=== PATIENT | male | born 1955 | race African-American/Black ===

== ENCOUNTER 2024-10-21 19:11 | Emergency (ER) | payer BC, MEDICAID, MEDICARE ==
[~2024-10-21] VITALS: Ht 177.8 cm; Wt 84.0 kg
[2024-10-21 19:17] VITALS: O2SAT 99
[2024-10-22 00:20] LABS: CLARITY URINE TURBID (CLEAR); COLOR URINE YELLOW (YELLOW); GLUCOSE URINE NEGATIVE (NEGATIVE); KETONES URINE NEGATIVE (NEGATIVE); LEUKOCYTE ESTERASE URINE 3+ (NEGATIVE); NITRITE URINE NEGATIVE (NEGATIVE); OCCULT BLOOD URINE 3+ (NEGATIVE); PROTEIN URINE 3+ (NEGATIVE); SPECIFIC GRAVITY URINE 1.021 (1.005-1.030)
[2024-10-22] MEDS: KETOROLAC 30MG/ML VIAL IM STA (01:23)
[2024-10-22] MEDS: CEPHALEXIN 250MG CAPSULE PO NR (01:38)
[2024-10-22] MEDS: KETOROLAC 30MG/ML VIAL IM NR (01:38)
[2024-10-22 01:43] LABS: BASOPHILS % 0.6 % (0.0-2.0); EOSINOPHILS % 7.3 % (0.0-5.0); HEMATOCRIT. 37.2 % (42.0-52.0); HEMOGLOBIN. 12.7 g/dL (14.0-18.0); LYMPHOCYTES % 20.6 % (20.0-50.0); MEAN CORPUSCULAR HEMOGLOBIN 30.2 pg (28.0-32.0); MEAN CORPUSCULAR HGB CONC 34.1 g/dL (31.0-37.0); MEAN CORPUSCULAR VOLUME 88.8 fL (80.0-94.0); MONOCYTES % 11.9 % (2.0-8.0); NEUTROPHILS % 59.6 % (40.0-76.0); PLATELET 201 x1000/uL (130-400); RED BLOOD CELL COUNT 4.19 mill/uL (4.7-6.1)
[2024-10-22 01:50] LABS: CARBON DIOXIDE 29 mEq/L (21-32); CHLORIDE 107 mEq/L (98-107); POTASSIUM 4.4 mEq/L (3.5-5.1); SODIUM 142 mEq/L (136-145)
[2024-10-22 01:51] LABS: CALCIUM 8.8 mg/dL (8.7-10.4)
[2024-10-22 01:55] LABS: CREATININE 1.6 mg/dL (0.6-1.3)
[2024-10-22 01:56] LABS: GLUCOSE 139 mg/dL (70-105); UREA NITROGEN BLOOD 21 mg/dL (9-23)
[2024-10-22 01:57] LABS: ALANINE AMINOTRANSFERASE 16 IU/L (10-49); ALBUMIN 3.7 g/dL (3.2-4.8); ASPARTATE AMINOTRANSFERASE 16 IU/L (<34)
[2024-10-22 01:58] LABS: BILIRUBIN DIRECT 0.2 mg/dL (<=3.0); BILIRUBIN TOTAL 0.5 mg/dL (0.1-1.0); PROTEIN TOTAL 6.9 g/dL (6.0-8.3)
[2024-10-22] MEDS: SODIUM CHLORIDE 0.9% 1,000 ML IV ONE (01:58)
[2024-10-22 04:19] LABS: WBC URINE TNTC /hpf (0-2)
[2024-10-22 04:23] LABS: RBC URINE 50-100 /hpf (0-2); SQUAMOUS EPITHELIAL CELL URINE NONE SEEN /lpf (RARE/1+)
[2024-10-22 04:25] LABS: BACTERIA URINE 2+
[2024-10-22] MEDS ORDERED: IBUP-2029 MT (05:23)
[2024-10-22] MEDS ORDERED: CEPH500T MT (05:23)
[2024-10-22 06:11] VITALS: BP 138/78; PULSE 83; RESP 18; TEMP 36.9; O2SAT 96
== END 2024-10-22 06:13 | disposition home or self-care (01) ==
LOC: ER 19:11
DX: R10.9 Unspecified abdominal pain (principal); R35.0 Frequency of micturition; R39.15 Urgency of urination; I10 Essential (primary) hypertension; J44.9 Chronic obstructive pulmonary disease, unspecified; Z87.442 Personal history of urinary calculi
CPT/HCPCS: 99285; 81003; 87086; 87186; 87077; 36415; 74176; 80076; 80048; 83690; 85025; 96372; J1885; J7030; A4606

== ENCOUNTER 2024-11-26 16:45 | Emergency (ER) | payer MEDICARE, MEDICAID ==
[~2024-11-26] VITALS: Ht 177.8 cm; Wt 75.0 kg
[~2024-11-26 16:45] MED LIST: CEPH500T MT; IBUP-2029 MT
[2024-11-26 16:47] VITALS: BP 189/140; TEMP 36.9
[2024-11-26 17:10] VITALS: O2SAT 98
[2024-11-26 17:39] VITALS: PULSE 101; RESP 22; O2SAT 97
[2024-11-26] MEDS: ALBUTEROL (0.083%) 2.5MG/3ML NEB HHN NR (17:39)
[2024-11-26] MEDS: IPRATROPIUM BROMIDE (0.02%) 0.5MG/2.5ML NEB HHN NR (17:39)
[2024-11-26 18:26] LABS: BASOPHILS % 0.6 % (0.0-2.0); EOSINOPHILS % 1.1 % (0.0-5.0); HEMATOCRIT. 37.7 % (42.0-52.0); HEMOGLOBIN. 12.2 g/dL (14.0-18.0); LYMPHOCYTES % 20.7 % (20.0-50.0); MEAN CORPUSCULAR HEMOGLOBIN 28.9 pg (28.0-32.0); MEAN CORPUSCULAR HGB CONC 32.3 g/dL (31.0-37.0); MEAN CORPUSCULAR VOLUME 89.5 fL (80.0-94.0); MEAN PLATELET VOLUME 10.1 fl (7.4-10.4); MONOCYTES % 11.6 % (2.0-8.0); PLATELET 191 x1000/uL (130-400); RED BLOOD CELL COUNT 4.22 mill/uL (4.7-6.1); RED CELL DISTRIBUTION WIDTH 16.8 % (11.6-14.6)
[2024-11-26 18:45] LABS: CHLORIDE 107 mEq/L (98-107); POTASSIUM 4.2 mEq/L (3.5-5.1); SODIUM 141 mEq/L (136-145)
[2024-11-26 18:46] LABS: CARBON DIOXIDE 28 mEq/L (21-32)
[2024-11-26 18:51] LABS: CREATININE 1.5 mg/dL (0.6-1.3); GLUCOSE 90 mg/dL (70-105); UREA NITROGEN BLOOD 24 mg/dL (9-23)
[2024-11-26] MEDS: FUROSEMIDE 40MG/4ML VIAL IVP NR (19:30)
[2024-11-26 19:39] LABS: TROPONIN I HIGH SENSITIVITY 96 ng/L (3.0-53)
[2024-11-26] MEDS: ASPIRIN 325MG EC TABLET PO NR (21:02)
== END 2024-11-26 22:26 | disposition left against medical advice (07) ==
LOC: ER 16:45 → EDBEDREQ 17:17 → ER 22:26
DX: J44.9 Chronic obstructive pulmonary disease, unspecified (principal); R00.0 Tachycardia, unspecified; F12.90 Cannabis use, unspecified, uncomplicated; I10 Essential (primary) hypertension; F17.210 Nicotine dependence, cigarettes, uncomplicated; Z79.899 Other long term (current) drug therapy
CPT/HCPCS: 99291; 96374; 80048; 83880; 85025; 84484; 36415; 71045; 94640; 93005; J1940; 94070

== ENCOUNTER 2025-05-29 16:52 | Inpatient (IN) | payer MEDICARE, MEDICAID ==
[~2025-05-29] VITALS: Ht 180.3 cm; Wt 80.3 kg
[~2025-05-29 16:52] MED LIST changes: +IBUP-1455 MT; -IBUP-2029 MT
[2025-05-29 17:00] VITALS: O2SAT 99
[2025-05-29] MEDS ORDERED: FUROSEMIDE 40MG/4ML VIAL IV ONE (17:15)
[2025-05-29 17:37] LABS: BASOPHILS % 1.0 % (0.0-2.0); EOSINOPHILS % 2.5 % (0.0-5.0); HEMATOCRIT. 35.6 % (42.0-52.0); HEMOGLOBIN. 11.3 g/dL (14.0-18.0); LYMPHOCYTES % 21.0 % (20.0-50.0); MEAN PLATELET VOLUME 9.5 fl (7.4-10.4); MONOCYTES % 11.6 % (2.0-8.0); NEUTROPHILS % 63.9 % (40.0-76.0); PLATELET 141 x1000/uL (130-400); RED BLOOD CELL COUNT 3.92 mill/uL (4.7-6.1); RED CELL DISTRIBUTION WIDTH 18.4 % (11.6-14.6)
[2025-05-29 17:48] LABS: INR 1.2
[2025-05-29 17:50] LABS: CREATININE 1.7 mg/dL (0.6-1.3); UREA NITROGEN BLOOD 18 mg/dL (9-23)
[2025-05-29 17:52] LABS: ASPARTATE AMINOTRANSFERASE 17 IU/L (<34); BILIRUBIN DIRECT 0.3 mg/dL (<=3.0); BILIRUBIN TOTAL 0.6 mg/dL (0.1-1.0)
[2025-05-29 17:53] LABS: PROTEIN TOTAL 7.3 g/dL (6.0-8.3); TROPONIN I HIGH SENSITIVITY 76 ng/L (3.0-53)
[2025-05-29] MEDS ORDERED: CLOPIDOGREL 75MG TABLET PO ONE (18:00)
[2025-05-29] MEDS ORDERED: ASPIRIN 325MG EC TABLET PO ONE (18:00)
[2025-05-29] MEDS: CLOPIDOGREL 75MG TABLET PO NR (20:31)
[2025-05-29] MEDS: FUROSEMIDE 40MG/4ML VIAL IV NR (20:31)
[2025-05-29] MEDS: ASPIRIN 325MG EC TABLET PO NR (20:32)
[2025-05-29 21:16] VITALS: BP 187/149; O2SAT 95
[2025-05-29 21:18] VITALS: BP 169/115; PULSE 81; RESP 18; O2SAT 98
[2025-05-29 23:48] VITALS: BP 152/98; PULSE 79; RESP 20; TEMP 36.696
[2025-05-30] VITALS: BP 152/98; PULSE 84; RESP 20; TEMP 36.7; O2SAT 100
[2025-05-30 04:59] VITALS: BP 155/96; PULSE 75; RESP 20; TEMP 36.4; O2SAT 100
[2025-05-30] MEDS ORDERED: HYDROCODONE/ACETAMINOPHEN 10/325MG TABLET PO PRN (06:00)
[2025-05-30] MEDS ORDERED: ALPRAZOLAM 0.5 MG TABLET PO PRN (06:15)
[2025-05-30 08:00] VITALS: BP 170/50; PULSE 91; RESP 14; TEMP 36.4; O2SAT 92
[2025-05-30] MEDS: ASPIRIN 81MG TABLET PO SCH (08:19)
[2025-05-30] MEDS: FUROSEMIDE 40MG TABLET PO SCH (08:20)
[2025-05-30 08:34] LABS: HEPATITIS C AB REACTIVE (Pos) (Negative)
[2025-05-30] MEDS: FUROSEMIDE 40MG/4ML VIAL IVP SCH (10:57)
[2025-05-30] MEDS: HYDRALAZINE HCL 50MG TABLET PO NR (10:59)
[2025-05-30] MEDS: AMLODIPINE 10MG TABLET PO SCH (11:37)
[2025-05-30 12:00] VITALS: BP 151/114; PULSE 77; RESP 14; TEMP 36.7; O2SAT 99
[2025-05-30] MEDS: GABAPENTIN 300MG CAPSULE PO SCH (13:37)
[2025-05-30] MEDS: ENOXAPARIN 40MG/0.4ML SYR SUBCUT SCH (13:37)
[2025-05-30] MEDS: HYDRALAZINE HCL 50MG TABLET PO SCH (13:37)
[2025-05-30 15:00] LABS: *AMPHETAMINES SCREEN URINE NEGATIVE (NEGATIVE); *BARBITURATES SCREEN URINE NEGATIVE (NEGATIVE); *BENZODIAZEPINES SCREEN URINE NEGATIVE (NEGATIVE); *COCAINE SCREEN URINE PRESUMPTIVE POSITIVE (NEGATIVE); CANNABINOID URINE SCREEN NEGATIVE (NEGATIVE); ECSTASY MDMA SCREEN URINE NEGATIVE (NEGATIVE); METHADONE URINE SCREEN NEGATIVE (NEGATIVE); OPIATES URINE SCREEN NEGATIVE (NEGATIVE); PHENCYCLIDINE URINE SCREEN PRESUMTIVE POSITIVE (NEGATIVE)
[2025-05-30 15:44] LABS: BASOPHILS % 0.8 % (0.0-2.0); EOSINOPHILS % 2.1 % (0.0-5.0); HEMATOCRIT. 36.1 % (42.0-52.0); HEMOGLOBIN. 11.8 g/dL (14.0-18.0); LYMPHOCYTES % 17.6 % (20.0-50.0); MEAN PLATELET VOLUME 9.3 fl (7.4-10.4); MONOCYTES % 9.9 % (2.0-8.0); NEUTROPHILS % 69.6 % (40.0-76.0); PLATELET 172 x1000/uL (130-400); RED BLOOD CELL COUNT 4.14 mill/uL (4.7-6.1); RED CELL DISTRIBUTION WIDTH 18.3 % (11.6-14.6)
[2025-05-30 15:54] LABS: CREATININE 1.8 mg/dL (0.6-1.3); UREA NITROGEN BLOOD 19.0 mg/dL (9-23)
[2025-05-30 16:00] VITALS: BP 155/94; PULSE 88; RESP 17; TEMP 36.4; O2SAT 96
[2025-05-30 16:06] LABS: TROPONIN I HIGH SENSITIVITY 72.0 ng/L (3.0-53)
[2025-05-30 20:00] VITALS: BP 156/103; PULSE 97; RESP 14; TEMP 36.9; O2SAT 99
[2025-05-30] MEDS: ALPRAZOLAM 0.5 MG TABLET PO SCH (21:50)
[2025-05-31] VITALS: BP 133/84; PULSE 95; RESP 20; TEMP 37; O2SAT 90
[2025-05-31 04:00] VITALS: BP 126/106; PULSE 93; RESP 14; TEMP 36.9; O2SAT 90
[2025-05-31 08:00] VITALS: BP 121/52; PULSE 95; RESP 15; TEMP 36.8; O2SAT 95
[2025-05-31] MEDS ORDERED: PREDNISONE 20MG TABLET PO SCH (10:00)
[2025-05-31 12:00] VITALS: BP 121/52; PULSE 96; RESP 15; TEMP 36.7; O2SAT 95
[2025-05-31 12:00] LABS: BG BASE EXCESS 5.8 mmol/L (-2.0-3.0); BG CARBOXYHEMOGLOBIN 2.2 % (0.5-1.5); BG DEOXYHEMOGLOBIN 5.1 % (0.0-5.0); BG FRACTION INSPIRED OXYGEN 21; BG HCO3 ACT 30.8 mmol/L (21.0-28.0); BG METHEMOGLOBIN 0.1 % (0.5-1.5); BG OXYGEN SATURATION 94.8 % (94.0-98.0); BG OXYHEMOGLOBIN 92.6 % (94.0-98.0); BG PCO2 45.6 mmHg (35.0-48.0); BG PH 7.447 (7.350-7.450); BG PO2 74.4 mmHg (83.0-108.0); BG SAMPLE SITE LEFT BRACHIAL; BG TOTAL HEMOGLOBIN 14.0 g/dL (13.5-17.5); BG VENT MODE ROOM AIR
[2025-05-31 17:03] VITALS: BP 112/68; PULSE 78; RESP 20; TEMP 98
== END 2025-05-31 17:54 | disposition home or self-care (01) | DRG 280 ==
LOC: ER 16:52 → EDBEDREQ 18:26 → EDBEDREQTM 18:26 → ENRESERV 20:31 → 3WST 21:14
PROVIDERS: ADMIT Internal Medicine; ATTEND Internal Medicine
DX: I13.0 Hypertensive heart and chronic kidney disease with heart failure and stage 1 through stage 4 chronic kidney disease, or unspecified chronic kidney disease (principal); I50.23 Acute on chronic systolic (congestive) heart failure; I21.4 Non-ST elevation (NSTEMI) myocardial infarction; J96.00 Acute respiratory failure, unspecified whether with hypoxia or hypercapnia; N17.9 Acute kidney failure, unspecified; D64.9 Anemia, unspecified; D72.819 Decreased white blood cell count, unspecified; N18.9 Chronic kidney disease, unspecified; I48.91 Unspecified atrial fibrillation; F16.90 Hallucinogen use, unspecified, uncomplicated; F17.210 Nicotine dependence, cigarettes, uncomplicated; F19.10 Other psychoactive substance abuse, uncomplicated; M10.9 Gout, unspecified; Z87.442 Personal history of urinary calculi
CPT/HCPCS: 36415; 36600; 71045; 73080; 80048; 80076; 80305; 82375; 82805; 83735; 83880; 84484; 84550; 85025; 86705; 87340; 93005; 93306; 96374; 99291; A4606; J1650; J1938

== ENCOUNTER 2025-06-13 06:21 | Inpatient (IN) | payer MEDICARE, MEDICAID ==
[~2025-06-13] VITALS: Ht 180.3 cm; Wt 82.1 kg
[2025-06-13 06:28] VITALS: O2SAT 95
[2025-06-13] MEDS ORDERED: MORPHINE SULFATE 4 MG/ML INJ (FOR IV/IM USE) IV ONE (06:45)
[2025-06-13 07:30] LABS: HEMATOCRIT. 33.8 % (42.0-52.0); HEMOGLOBIN. 11.2 g/dL (14.0-18.0); MEAN PLATELET VOLUME 9.5 fl (7.4-10.4); PLATELET 141 x1000/uL (130-400); RED BLOOD CELL COUNT 3.91 mill/uL (4.7-6.1); RED CELL DISTRIBUTION WIDTH 18.2 % (11.6-14.6)
[2025-06-13] MEDS: FUROSEMIDE 40MG/4ML VIAL IVP ONE (07:45)
[2025-06-13] MEDS: ENALAPRIL 2.5MG/2ML VIAL 2ML IV ONE (07:45)
[2025-06-13 07:47] LABS: CREATININE 1.8 mg/dL (0.6-1.3)
[2025-06-13 07:48] LABS: UREA NITROGEN BLOOD 27 mg/dL (9-23)
[2025-06-13 08:15] LABS: TROPONIN I HIGH SENSITIVITY 75 ng/L (3.0-53)
[2025-06-13] MEDS: ENALAPRIL 1.25MG/ML VIAL 1ML IV SCH (08:15)
[2025-06-13] MEDS: ACETAMINOPHEN 1000MG/100ML 100 ML IV ONE (08:30)
[2025-06-13] MEDS: NIFEDIPINE XL 60MG TAB PO NR (10:15)
[2025-06-13] MEDS: HYDRALAZINE 20MG/ML VIAL IV SCH (11:27)
[2025-06-13 12:21] LABS: BAND% 3.0 % (1.0-6.0); EOSINOPHILS % MANUAL 3.0 % (0.0-5.0); LYMPHOCYTES % MANUAL 18.0 % (20.0-50.0); MONOCYTES % MANUAL 14.0 % (2.0-8.0); NEUTROPHILS % MANUAL 62.0 % (45.0-75.0)
[2025-06-13 12:22] LABS: PLATELET ESTIMATE NORMAL
[2025-06-13] MEDS: FUROSEMIDE 100MG/10ML VIAL IVP SCH (13:15)
[2025-06-13] MEDS ORDERED: ACETAMINOPHEN 325MG TABLET PO PRN (13:15)
[2025-06-13] MEDS ORDERED: ONDANSETRON HCL 4MG/2ML INJ IV PRN (13:15)
[2025-06-13] MEDS ORDERED: ALPR2TAB2 MT (13:40)
[2025-06-13] MEDS ORDERED: GABA-290 MT (13:40)
[2025-06-13] MEDS ORDERED: LISI2.5T47 MT (13:40)
[2025-06-13] MEDS ORDERED: OXYC1TAB12 MT (13:40)
[2025-06-13] MEDS ORDERED: FURO-151 MT (13:40)
[2025-06-13 13:47] VITALS: BP 94/59; PULSE 73; RESP 20; TEMP 36.4736
[2025-06-13] MEDS: HYDRALAZINE HCL 50MG TABLET PO SCH (14:00)
[2025-06-13 16:00] VITALS: BP 111/66; PULSE 71; RESP 19; TEMP 36.5; O2SAT 96
[2025-06-13 20:00] VITALS: BP 106/61; PULSE 76; RESP 18; TEMP 36.4; O2SAT 96
[2025-06-13] MEDS: CARVEDILOL 12.5MG TABLET PO SCH (20:37)
[2025-06-14] VITALS: BP 139/79; PULSE 77; RESP 18; TEMP 36.4; O2SAT 98
[2025-06-14 01:19] LABS: *AMPHETAMINES SCREEN URINE NEGATIVE (NEGATIVE); *BARBITURATES SCREEN URINE NEGATIVE (NEGATIVE); *BENZODIAZEPINES SCREEN URINE NEGATIVE (NEGATIVE); *COCAINE SCREEN URINE PRESUMPTIVE POSITIVE (NEGATIVE); CANNABINOID URINE SCREEN NEGATIVE (NEGATIVE); METHADONE URINE SCREEN NEGATIVE (NEGATIVE); OPIATES URINE SCREEN NEGATIVE (NEGATIVE); PHENCYCLIDINE URINE SCREEN PRESUMTIVE POSITIVE (NEGATIVE)
[2025-06-14 01:20] LABS: ECSTASY MDMA SCREEN URINE NEGATIVE (NEGATIVE)
[2025-06-14 04:00] VITALS: BP 142/75; PULSE 78; RESP 17; TEMP 36.4; O2SAT 76
[2025-06-14 08:00] VITALS: BP 145/46; PULSE 67; RESP 19; TEMP 36.4; O2SAT 98
[2025-06-14] MEDS: ENOXAPARIN 40MG/0.4ML SYR SUBCUT SCH (09:00)
[2025-06-14] MEDS ORDERED: SPIR25TA6 MT (11:22)
[2025-06-14] MEDS ORDERED: FURO80TA87 MT (11:22)
[2025-06-14] MEDS ORDERED: LOSA100T33 MT (11:22)
[2025-06-14] MEDS ORDERED: COR12 PO (11:22)
[2025-06-14 12:00] VITALS: BP 125/66; PULSE 60; RESP 18; TEMP 36.5; O2SAT 97
[2025-06-14] MEDS: MAGNESIUM 2 G PREMIX 50 ML IV SCH (15:00)
[2025-06-14 17:07] VITALS: BP 136/74; PULSE 20; RESP 20; TEMP 97.2
== END 2025-06-14 17:45 | disposition home or self-care (01) | DRG 280 ==
LOC: ER 06:21 → 8WST 08:40 → EDBEDREQ 08:48 → EDBEDREQTM 08:48 → ENRESERV 11:35
PROVIDERS: ADMIT Internal Medicine; ATTEND Internal Medicine
DX: I13.0 Hypertensive heart and chronic kidney disease with heart failure and stage 1 through stage 4 chronic kidney disease, or unspecified chronic kidney disease (principal); I50.23 Acute on chronic systolic (congestive) heart failure; I21.4 Non-ST elevation (NSTEMI) myocardial infarction; E66.9 Obesity, unspecified; N18.9 Chronic kidney disease, unspecified; D64.9 Anemia, unspecified; Z68.25 Body mass index [BMI] 25.0-25.9, adult; F19.10 Other psychoactive substance abuse, uncomplicated; D72.819 Decreased white blood cell count, unspecified; F17.210 Nicotine dependence, cigarettes, uncomplicated; F14.90 Cocaine use, unspecified, uncomplicated
CPT/HCPCS: 36415; 71045; 80048; 80305; 83880; 84484; 85025; 93005; 96374; 96375; 97116; 97162; 99285; J0360; J1650; J1938; J2270; J3475; J3490; J0131